=== PATIENT | female | born 2000 | race Caucasian/White ===

== ENCOUNTER 2021-03-16 19:16 | Emergency (ER) | payer OTHER ==
[~2021-03-16 19:16] MED LIST: CIPRO500 MG PO; FLAGYL500 MG PO; ZOFRAN4 MG PO
== END 2021-03-16 21:45 | disposition home or self-care (01) ==
LOC: ER1 19:16
DX: L05.01 Pilonidal cyst with abscess (principal); F17.200 Nicotine dependence, unspecified, uncomplicated; Z88.0 Allergy status to penicillin; Z88.1 Allergy status to other antibiotic agents
CPT/HCPCS: 10080; 87070; 87205; 99283